=== PATIENT | female | born 1985 | race Caucasian/White ===

== ENCOUNTER 2017-04-11 07:32 | Day surgery (SDC) | payer MEDICAID ==
[~2017-04-11 07:32] MED LIST: CEFAZOLIN 1 GM INJ
[2017-04-11 08:52] LABS: ADD MAN DIFF? NO
[2017-04-11 08:59] LABS: BASOPHILS % 0.6 % (0.0-2.0); EOSINOPHILS # 0.1 10^3/ul (0.0-0.5); EOSINOPHILS % 1.7 % (0.0-7.0); HEMATOCRIT 41.7 % (37.0-47.0); HEMOGLOBIN 13.8 g/dl (12.0-16.0); LYMPHOCYTES # 2.3 10^3/ul (0.8-2.9); LYMPHOCYTES % 35.5 % (15.0-51.0); MEAN CORPUSCULAR HEMOGLOBIN 30.3 pg (29.0-33.0); MEAN CORPUSCULAR HGB CONC 33.1 g/dl (32.0-37.0); MEAN CORPUSCULAR VOLUME 91.4 fl (82.0-101.0); MEAN PLATELET VOLUME 10.3 fl (7.4-10.4); MONOCYTE # 0.3 10^3/ul (0.3-0.9); MONOCYTES % 4.7 % (0.0-11.0); NEUTROPHIL # 3.7 10^3/ul (1.6-7.5); NEUTROPHILS % 57.2 % (39.0-77.0); PLATELET COUNT 401 10^3/UL (140-415); RED BLOOD COUNT 4.56 10^6/ul (4.20-5.40)
[2017-04-11 08:59] LABS: WHITE BLOOD COUNT 6.5 10^3/ul (4.8-10.8)
[2017-04-11] MEDS ORDERED: METOCLOPRAMIDE 10 MG INJ (09:20)
[2017-04-11] MEDS ORDERED: MIDAZOLAM 1 MG/ML 2 ML INJ (09:20)
[2017-04-11] MEDS ORDERED: PROPOFOL 20 ML (09:22)
[2017-04-11] MEDS ORDERED: ROCURONIUM 50 MG INJ (09:22)
[2017-04-11] MEDS ORDERED: KETOROLAC 30 MG INJ (09:23)
[2017-04-11] MEDS ORDERED: ROPIVACAINE 0.5 % 30 ML VIAL (09:23)
[2017-04-11] MEDS ORDERED: ONDANSETRON 4 MG INJ (09:23)
[2017-04-11] MEDS ORDERED: HYDROmorphONE 2 MG/ML SYG (09:32)
[2017-04-11] MEDS ORDERED: GLYCOPYRROLATE 0.4 MG INJ (09:49)
[2017-04-11] MEDS ORDERED: EPHEDrine SULFATE 50 MG/5 ML SYG (09:49)
[2017-04-11] MEDS ORDERED: NEOSTIGMINE 3 MG/3 ML SYRINGE (09:49)
== END 2017-04-11 11:59 | disposition home or self-care (01) ==
LOC: SDS 07:32
DX: Z30.2 Encounter for sterilization (principal); Z30.432 Encounter for removal of intrauterine contraceptive device
CPT/HCPCS: 58670; 84703; 85025; 86900; 86901; 88300